=== PATIENT | male | born 1970 | race Caucasian/White ===

== ENCOUNTER → 2019-02-08 | Outpatient (CLI) | payer BC ==
--- NOTE | 2019-02-08 12:52 | Diagnostic Imaging Report ---
EXAMINATION: PA and lateral views of the chest. COMPARISON: None CLINICAL HISTORY: +PPD DISCUSSION: Lines/tubes: None. Lungs: The lungs are well inflated and clear. There is no evidence of pneumonia or pulmonary edema. Pleura: There is no pleural effusion or pneumothorax. Heart and mediastinum: The cardiomediastinal silhouette is normal. Bones and soft tissues: No acute bony abnormalities. IMPRESSION: No acute cardiopulmonary abnormalities. No radiographic findings of active granulomatous disease. Signed by: Dr. Austen Courtney M.D. on 02/08/2019 12:49 PM
--- NOTE | 2019-02-08 13:47 | Diagnostic Imaging Report ---
EXAM: US LIVER DATE: 02/08/2019 11:29 AM INDICATION: Elevated liver function tests COMPARISON: None TECHNIQUE: Transverse and longitudinal morrissey scale and color doppler sonographic images of the upper abdomen were obtained. FINDINGS: LIVER 12.8 cm in the right midclavicular line. Increased echogenicity, normal contour, no masses. GALLBLADDER No stones, sludge, wall-thickening or pericholecystic fluid. Negative sonographic Torres's sign. BILE DUCTS No intra nor extra-hepatic biliary dilation. Common bile duct measures 0.3 cm PANCREAS: Visualized portions are normal. RIGHT KIDNEY: 11.1 cm Echogenicity: Normal Collecting System: No hydronephrosis Stones: None Cyst/Mass: None VESSELS: Aorta: Nonaneurysmal Inferior Vena Cava: Patent Main Portal Vein: 0.9 cm, normal size with hepatopetal flow. FREE FLUID: None IMPRESSION: Increased hepatic parenchymal echogenicity compatible with steatosis. No cholelithiasis or sonographic evidence of acute cholecystitis. Signed by: Dr. Austen Courtney M.D. on 02/08/2019 1:44 PM
== END ==
LOC: US 11:21
PROVIDERS: ATTEND Internal Medicine
DX: R94.5 Abnormal results of liver function studies (principal); R76.11 Nonspecific reaction to tuberculin skin test without active tuberculosis
CPT/HCPCS: 71046; 76705